=== PATIENT | female | born 1950 | race Caucasian/White ===

== ENCOUNTER → 2018-07-05 | Outpatient (CLI) | payer BC ==
--- NOTE | 2018-07-05 15:23 | MR ---
EXAMINATION TYPE: MR angio head wo con DATE OF EXAM: 07/05/2018 COMPARISON: 05/03/2015 HISTORY: Vascular headache, temporal artery biopsy 1 wk ago TECHNIQUE: Utilizing 3-D [id number] intracranial MRA of the teller of [place] was performed. FINDINGS: The vertebrobasilar and carotid systems are patent. There is no sizable aneurysm or vascular malform ation. Left vertebral artery is dominant. A1 segment of the left anterior cerebral artery is slightly hypopl astic. IMPRESSION: 1. No evidence of vascular malformation or sizable aneurysm.
--- NOTE | 2018-07-05 17:05 | MR ---
EXAMINATION TYPE: MR brain wo con DATE OF EXAM: 07/05/2018 3:06 PM COMPARISON: NONE HISTORY: Vascular headache, temporal artery biopsy 1 wk ago FINDINGS: The ventricles, basal cisterns and sulci overlying the cerebral convexities are mildly enlarged. There is evidence of mild periventricular white matter ischemic demyelination. Demyelinating disease is not excluded. Remote deep white matter insults are also noted. No acute edema is seen on diffusion weighted imaging. There is no evidence for midline shift or mass effect. Acute intracranial hemorrhage or extra-axial collection is not evident. The paranasal sinuses and mastoid air cells are well-aerated. IMPRESSION: Age-related atrophic and chronic small vessel ischemic change. No acute intracranial process at this time.
== END ==
LOC: RADMRIMAIN 14:19
PROVIDERS: ATTEND Psychiatry & Neurology Neurology
DX: G31.1 Senile degeneration of brain, not elsewhere classified (principal); I67.82 Cerebral ischemia; G44.1 Vascular headache, not elsewhere classified
CPT/HCPCS: 70544; 70551

== ENCOUNTER → 2019-02-12 | Outpatient (CLI) | payer BC | END | disposition home or self-care (01) | LOC: LABWHC1 12:15 | PROVIDERS: ATTEND Psychiatry & Neurology Neurology | DX: R51 Headache (principal); I82.90 Acute embolism and thrombosis of unspecified vein; Z86.73 Personal history of transient ischemic attack (TIA), and cerebral infarction without residual deficits | CPT/HCPCS: 36415; 81241 ==

== ENCOUNTER 2019-05-03 13:18 | Emergency (ER) | payer BC ==
[2019-05-03 13:24] VITALS: RESP 18
[2019-05-03] MEDS ORDERED: LIDOCAINE 1% INJ 10MG/ML (20 ML MDV) SQ ONE (13:47)
--- NOTE | 2019-05-03 14:24 | CT ---
EXAMINATION TYPE: CT brain sarah wo con DATE OF EXAM: 05/03/2019 COMPARISON: CT brain 05/01/2015 HISTORY: Fall, injury to nose, pain back of head CT DLP: 988..9 mGycm Automated exposure control for dose reduction was used. Multiple axial sections were obtained of the brain without contrast. Ventricles have normal size. There is no mass effect nor midline shift. There is no sign of intracran ial hemorrhage. The calvarium is intact. There is no evidence of cerebral edema. Cervical vertebra have normal alignment. There is mild narrowing at C5-6 disc space. Posterior elemen ts are intact. There is minor hypertrophic facet arthropathy in the mid cervical spine. The skull bas e is intact. IMPRESSION: Minor degenerative disc changes in the cervical spine. No fracture. Negative CT scan of the brain. No change.
--- NOTE | 2019-05-03 14:26 | CT ---
EXAMINATION TYPE: CT facial bones wo con DATE OF EXAM: 05/03/2019 COMPARISON: HISTORY: Fall, injury to nose, pain back of head CT DLP: Included in brain/cspine mGycm Automated exposure control for dose reduction was used. Multiple axial sections were obtained from the bottom of the maxilla to the top of the frontal sinuse s without contrast. Temporomandibular joints are intact. Zygomatic arches appear normal. The maxilla is intact. There is normal aeration of the paranasal sinuses. I see no bony destructive process. Nasal bone appears intac t. There is no evidence of orbital mass. There is no evidence of a blowout fracture. There is normal aeration of the temporal bones. IMPRESSION: Normal CT scan of the facial bones. No fracture.
[2019-05-03] MEDS ORDERED: CEPHALEXIN 500MG STARTER PACK 4 CAP BTL PO STA (14:57)
[2019-05-03] MEDS ORDERED: traMADol 50 MG STARTER PACK 3 TAB BTL PO STA (14:57)
--- NOTE | 2019-05-03 15:00 | ED ---
Fall HPI - General Chief Complaint: Fall Stated Complaint: facial injury Time Seen by Provider: 05/03/19 13:34 Source: patient Mode of arrival: wheelchair - History of Present Illness Initial Comments: 69yo female presenting today for cc of fall with nasal injury just prior to arrival. States just prior to arrival she was walking down steps missed the last 2 falling forward hitting her face on a wall. Patient states she scratched her nose. Patient states there is a skin tear. Patient denies loss of consciousness. Patient denies use of anticoagulation therapy. Patient denies any extremity injury states she denied neck pain after the fall. Patient states she has a slight headache, denies visual changes, diplopia, nausea, vomiting. Patient denies any chest pain, SOB or symptoms prior to falling. Patient states she tripped due to miscounting steps. Remainign ROS (-). Patient ambulatory and well appearing on arrival. - Related Data Home Medications Medication Instructions Recorded Confirmed Omeprazole [PriLOSEC] 20 mg PO DAILY 11/27/13 05/01/15 Sertraline [Zoloft] 50 mg PO QAM 11/27/13 05/01/15 Previous Rx's Medication Instructions Recorded Aspirin EC [Ecotrin] 325 mg PO DAILY #30 tablet. 05/04/15 Clopidogrel [Plavix] 75 mg PO DAILY #30 tab 05/04/15 Multivitamins, Thera [Multivitamin 1 each PO DAILY@1200 #30 tab 05/04/15 (formulary)] Simvastatin [Zocor] 40 mg PO DAILY #30 tab 05/04/15 traMADol HCl [Ultram] 50 mg PO Q6H PRN #20 tab 05/04/15 Cephalexin [Keflex] 500 mg PO Q12HR 5 Days #10 cap 05/03/19 Allergies Allergy/AdvReac Type Severity Reaction Status Date / Time Penicillins Allergy Rash/Hives Verified 05/03/19 13:24 Review of Systems ROS Statement: Those systems with pertinent positive or pertinent negative responses have been documented in the HPI. ROS Other: All systems not noted in ROS Statement are negative. Past Medical History Past Medical History: Cancer, GERD/Reflux, Hyperlipidemia Additional Past Medical History / Comment(s): KIDNEY STONE History of Any Multi-Drug Resistant Organisms: None Reported Past Surgical History: Section, Cholecystectomy, Tubal Ligation Additional Past Surgical History / Comment(s): SKIN CA REMOVED Past Anesthesia/Blood Transfusion Reactions: No Reported Reaction Past Psychological History: Anxiety Smoking Status: Never smoker Past Alcohol Use History: None Reported Past Drug Use History: None Reported - Past Family History Father Family Medical History: Congestive Heart Failure (CHF) Mother Family Medical History: Osteoarthritis (OA) General Exam - General Exam Comments Initial Comments: General: The patient is awake and alert, in no distress, and does not appear acutely ill. Eye: +3 mm pupils are equal, round and reactive to light, extra-ocular movements are intact. No nystagmus. There is normal conjunctiva bilaterally. No signs of icterus. Ears, nose, mouth and throat: There are moist mucous membranes and no oral lesions. Skin avulsion on the nasal bridge. No deep laceration. No septal deviation or hematoma. Neck: The neck is supple, there is no tenderness or JVD. No midline tenderness to patient the cervical spine. Patient is paravertebral tenderness however is able to fully range without difficulty. Cardiovascular: There is a regular rate and rhythm. No murmur, rub or gallop is appreciated. Respiratory: Lungs are clear to auscultation, respirations are non-labored, breath sounds are equal. No wheezes, stridor, rales, or rhonchi. Gastrointestinal: Soft, non-distended, non-tender abdomen without masses or organomegaly noted. There is no rebound or guarding present. Musculoskeletal: Normal ROM, no tenderness. Strength 5/5. Sensation intact. Radial pulses equal bilaterally 2+. Neurological: A&O x 3. CN II-XII intact, There are no obvious motor or sensory deficits. Coordination appears grossly intact. Speech is normal. Skin: Skin is warm and dry and no rashes or lesions are noted. No scalp hematomas. Psychiatric: Cooperative, appropriate mood & affect, normal judgment. Limitations: no limitations Course Vital Signs 05/03/19 05/03/19 13:21 15:10 Temperature 98.0 F 97.9 F Pulse Rate 20 L 63 Respiratory 18 18 Rate Blood Pressure 155/68 164/81 O2 Sat by Pulse 99 99 Oximetry Procedures - Laceration Laceration #1 Consent Obtained: verbal consent Indication: laceration Site: face Size (cm): 2 (avulsion of skin/flap) Description: flap, avulsion, irregular Depth: simple, single layer Anesthetic Used: lidocaine 1% Anesthesia Technique: local infiltration Amount (mls): 2 Pre-repair: wound explored, irrigated extensively, deep structures intact Type of Sutures: nylon Size of Sutures: 6-0 Number of Sutures: 6 Technique: simple, interrupted Patient Tolerated Procedure: well, no complications Additional Comments: Irrigated and cleansed with iodine prior to taking down skin avulsion, most edges adhere well had some difficulty with specific edges secondary to thin skin tearing, and irregularity or missing edges from trauma Medical Decision Making - Medical Decision Making 0-35-tvdi-old female presenting today for chief complaint of nasal injury, fall. Skin avulsion on exam. C/o mild headache, nose pain. No deviation of nose noted. No hematoma. CT brain/cspine (-) for acute process. CT facial bones (-). Avulsion repaired to the best of my ability, patient agreeable to closure. Tetanus UTD per patient. Patient initiated on keflex to prevent infection. Return parameters, suture care discussed, pateitn discharged appearing well. Disposition Clinical Impression: Facial injury, Skin avulsion, Fall, Head injury Disposition: HOME SELF-CARE Condition: Good Instructions (If sedation given, give patient instructions): Care For Your Stitches (ED), Skin Avulsion (ED), Fall Prevention (ED) Additional Instructions: Please use medication as discussed. Please follow-up with family doctor in the next 2 days, come in for suture removal in 5-7 days. Please return for purulent drainage, increasing redness or pain. Please return to emergency room if the symptoms increase or worsen or for any other concerns. Prescriptions: Cephalexin [Keflex] 500 mg PO Q12HR 5 Days #10 cap Is patient prescribed a controlled substance at d/c from ED?: No Referrals: Manda Stapleton MD [Primary Care Provider] - 1-2 days Time of Disposition: 14:59
[2019-05-03 15:17] VITALS: BP 164/81; PULSE 63; TEMP 97.9
== END 2019-05-03 15:10 | disposition home or self-care (01) ==
LOC: EC 13:18
DX: S01.21XA Laceration without foreign body of nose, initial encounter (principal); K21.9 Gastro-esophageal reflux disease without esophagitis; F41.9 Anxiety disorder, unspecified; Z88.0 Allergy status to penicillin; Z79.899 Other long term (current) drug therapy; Z85.828 Personal history of other malignant neoplasm of skin; Z98.890 Other specified postprocedural states; W10.9XXA Fall (on) (from) unspecified stairs and steps, initial encounter; Y93.01 Activity, walking, marching and hiking; Y92.009 Unspecified place in unspecified non-institutional (private) residence as the place of occurrence of the external cause
CPT/HCPCS: 99283; 12011; 72125; 70486; 70450; J2001

== ENCOUNTER → 2020-09-27 | Outpatient (CLI) | payer BC ==
[2020-09-27 10:19] VITALS: BP 118/65; PULSE 59; RESP 16; TEMP 98
--- NOTE | 2020-09-27 10:44 | P.PAINCN ---
History of Present Illness - Reason for Consult Consult date: 09/27/20 - History of Present Illness This is 70 years old female with a chronic history of severe headache, started more than 20 years, intensity and the frequency of the headaches increased over time, she is having constant severe headache, is from the base of the skull to the top of the head, she denies any motor or sensory deficit she denies any aura, as any visual changes, he was diagnosed with occipital neuralgia and she was treated by [facility] , she tried different Medications and She Is Recently Tried Excedrin headache, which helped to a minimal degree, she tried massage therapy and chiropractic therapy without any significant improvement of her headache, Past Medical History Past Medical History: Cancer, CVA/TIA, GERD/Reflux, Hyperlipidemia, Hypertension Additional Past Medical History / Comment(s): states chronic headaches, CVA 2016, no residual effects, hx of kidney stones, states still has KIDNEY STONE, skin CA History of Any Multi-Drug Resistant Organisms: None Reported Past Surgical History: Section, Cholecystectomy, Tubal Ligation Additional Past Surgical History / Comment(s): SKIN CA REMOVED, lithotripsy, temporal artery bx Past Anesthesia/Blood Transfusion Reactions: Postoperative Nausea & Vomiting (PONV) Smoking Status: Never smoker - Past Family History Father Family Medical History: Congestive Heart Failure (CHF) Mother Family Medical History: Osteoarthritis (OA) Medications and Allergies Home Medications Medication Instructions Recorded Confirmed Type Omeprazole [PriLOSEC] 20 mg PO DAILY 11/27/13 09/27/20 History Sertraline [Zoloft] 50 mg PO QAM 11/27/13 09/27/20 History Multivitamins, Thera [Multivitamin 1 each PO DAILY@1200 #30 tab 05/04/15 09/27/20 Rx (formulary)] Aspirin [Adult Low Dose Aspirin EC] 81 mg PO DAILY 09/23/20 09/27/20 History Lisinopril [Prinivil] 10 mg PO DAILY 09/23/20 09/27/20 History Rosuvastatin [Crestor] 20 mg PO DAILY 09/23/20 09/27/20 History Allergies Allergy/AdvReac Type Severity Reaction Status Date / Time Penicillins Allergy Rash/Hives Verified 09/23/20 15:07 Physical Exam Vitals: Vital Signs Temp Pulse Resp BP Pulse Ox 09/27/20 10:14 98.0 F 59 L 16 118/65 99 Physical Examinations : -Constitutiona : Cooperative , not in acute distress . -HEENT : nech : supple , no Lymphadenopathy , normal thyroid size . : eyes : no ptosis , no icterus, no photophobia . - neurologic : Cranial nerve II to XII intact , no focal neurological deffecit . -psychatric : alert , oriented X 3 , appropriate affect , intact judgment and insight . -Lymphatic : no Lymphadenopathy . - musculoskeltal : Cervical Spine motor stregnth in the deltoid and biceps, normal right side , normal Left side motor stregnth biceps and the wrist extensors normal right side ,normal left side . motor stregnth in the triceps muscle . normal Right side , normal Left side deep tendon reflexes normal at the biceps , normal at Brachioradialis , normal at triceps. cervical facet loading test: Positive Bilaterally Severe tenderness over the occipital nerve bilaterally Lumber spine moter stegnth lower extremities ,thigh and legs 5/5 Right side , 5/5 Left side Results Comments: MRI of the brain reviewed Assessment and Plan Plan: Assessment and plan=1-occipital neuralgia bilaterally. 2-cervicogenic headache. 3-cervical spondylosis. Patient could benefit from bilateral occipital nerve block, procedure risk and benefits and alternatives discussed with the patient and she agreed with the proceeding Time with Patient: Greater than 30 PQRS Measure Charge Sheet Measure #130: Documentation of Current Meds in Medical Chart: Patient's medications documented in chart Measure #226: Tobacco Use: Screen & Cessation Intervention: Pt not a tobacco user Measure #111: Pneumonia Vaccination: Pneumococcal vaccine NOT administered or previously given Measure #47: Advance Care Plan: Advance care planning discussed & documented, pt chose/unable to give Measure #412: Opioid Treatment Agreement: No documentation of signed opioid treatment agreement Measure #408: Opioid Therapy Follow-up Evaluation: Patient had NO f/u eval minimum every 3 months during opioid therapy Measure #317: Preventitive Care & Scrn High Bld Press & F/U: Normal blood pressure, f/u not required Measure #128: Body Mass Index (BMI) Screening & Follow-up: BMI documented ABOVE normal parameters - f/u documented Measure #131: Pain Assessment & Follow-up: Pain positive & plan documented, Follow-up scheduled Measure #431: Unhealthy Alcohol Use Preventative Care & Scrn: Patient not identified as an unhealthy alcohol user PQRS Narrative: Smoking Status Never smoker Blood Pressure 118/65 Pain Intensity [Head] 3 Scale Used Numeric (1 - 10) Hx Alcohol Use (MH) No Home Medications: Ambulatory Orders Omeprazole [PriLOSEC] 20 mg PO DAILY 11/27/13 Sertraline [Zoloft] 50 mg PO QAM 11/27/13 Multivitamins, Thera [Multivitamin (formulary)] 1 each PO DAILY@1200 #30 tab 05/04/15 Aspirin [Adult Low Dose Aspirin EC] 81 mg PO DAILY 09/23/20 Lisinopril [Prinivil] 10 mg PO DAILY 09/23/20 Rosuvastatin [Crestor] 20 mg PO DAILY 09/23/20
== END ==
LOC: PNWHC3 10:00
PROVIDERS: ATTEND Specialist
DX: M54.81 Occipital neuralgia (principal); M47.812 Spondylosis without myelopathy or radiculopathy, cervical region; E78.5 Hyperlipidemia, unspecified; I10 Essential (primary) hypertension; K21.9 Gastro-esophageal reflux disease without esophagitis; Z86.73 Personal history of transient ischemic attack (TIA), and cerebral infarction without residual deficits; Z79.82 Long term (current) use of aspirin; Z79.899 Other long term (current) drug therapy; Z88.0 Allergy status to penicillin
CPT/HCPCS: 99211

== ENCOUNTER 2020-10-26 07:26 | Day surgery (SDC) | payer BC ==
[2020-10-22 14:29] VITALS: BMI 34.4
[~2020-10-26 07:26] MED LIST: LACTATED RINGERS 1,000 ML IV SCH
[2020-10-26 07:43] VITALS: TEMP 97.1
[2020-10-26] MEDS ORDERED: methylPREDNISolone ACETATE 40 MG/ML 1 ML VIAL ONE (08:07)
[2020-10-26] MEDS ORDERED: ROPIVACAINE 5MG/ML 20ML VIAL ONE (08:07)
--- NOTE | 2020-10-26 08:18 | P.PCN ---
Date of Procedure: 10/26/20 Procedure(s) Performed: Preoperative diagnoses= 1- Greater occipital neuralgia. 2-cervical spondylosis with cervical facet arthropathy. 3-cervicogenic headache Postoperative diagnoses= same as preoperative diagnosis. Procedure= Bilateral Greater occipital nerve block Anesthesia= local anesthesia only. Estimated blood loss=minimal. Procedure indication= the patient had a history of severe chronic neck pain ,and headache, diagnosed with occipital neuralgia exam was positive for severe tenderness over the occipital nerve bilaterally, she will be a good candidate occipital nerve block, patient failed conservative management Procedure description= the patient was seen and identified in the preoperative holding area, risks and benefits and alternative of the procedure and possible complications discussed with the patient, and he agreed with the preceding, patient signed the consent, an IV was started, and vital signs were monitored and were stable throughout the procedure, patient was placed in the sitting position or table and the neck area was prepped and draped with a sterile fashion, vital signs were closely monitored during the procedure, 25-gauge needle advanced 1 inch lateral to the occipital protuberance on the right side, at the location of the right occipital nerve , then after negative aspiration for heme and CSF and there was no paresthesia during the injection, 6 ml of Robivacaine 0.5% and 20 mg of Depo-Medrol injected after negative aspiration, the needle removed, and the entire same procedure was repeated for the left Greater occipital nerve. Patient tolerated the procedure well without any complication, The patient returned to supine position after the back was cleaned and a Band- Aid applied, the patient transported to recovery room in stable condition and he was monitored for 30 minutes before he was discharged home and then patient was reexamined before going home and patient was discharged in stable condition and patient will follow up with the pain clinic in a few weeks.
[2020-10-26] MEDS ORDERED: IV FLUID CONTINUATION 975 ML IV ONE (08:21)
[2020-10-26 08:50] VITALS: RESP 18
[2020-10-26 09:04] VITALS: BP 149/96; PULSE 66
== END 2020-10-26 09:14 | disposition home or self-care (01) ==
LOC: ORPAIN 07:26
PROVIDERS: ATTEND Specialist
DX: M54.81 Occipital neuralgia (principal); M47.812 Spondylosis without myelopathy or radiculopathy, cervical region; R51.9 Headache, unspecified; Z78.0 Asymptomatic menopausal state; Z88.0 Allergy status to penicillin; Z88.2 Allergy status to sulfonamides
CPT/HCPCS: 64405; J1030; J2795

== ENCOUNTER 2020-12-07 08:16 | Day surgery (SDC) | payer BC ==
[2020-12-03 15:47] VITALS: BMI 33.6
[2020-12-07 08:38] VITALS: RESP 16; TEMP 96.9
[2020-12-07] MEDS ORDERED: LIDOCAINE 1% INJ 10MG/ML (20 ML MDV) ONE (08:49)
[2020-12-07] MEDS ORDERED: ROPIVACAINE 5MG/ML 20ML VIAL ONE (08:49)
[2020-12-07] MEDS ORDERED: TRIAMCINOLONE ACETONIDE 40 MG/ML 1 ML VIAL ONE (08:49)
--- NOTE | 2020-12-07 09:00 | P.PCN ---
Date of Procedure: 12/07/20 Surgeon: Hany Albrecht Pathology: none sent Condition: stable Disposition: PACU Description of Procedure: Pre-operative diagnosis: 1- occipital neuralgea Post Operative Diagnosis 1- occipital neuralgea Procedure: 1- B/L greater and lesser occipital nerve block ANESTHESIA: Local with Lidocaine 1 % EBL: Minimal PROCEDURE INDICATION: The patient with neck pain and headache secondary to occipital neuralgea unresponsive to conservative treatments. PROCEDURE DESCRIPTION / TECHNIQUE: The patient was seen and identified in the preoperative area. Risks, benefits, complications, and alternatives were discussed with the patient, the patient agreed to proceed with the procedure and signed the consent. IV was started. Vital signs remained stable throughout the procedure. Patient was taken to the OR and time out was completed. The patient was placed in the prone position on the procedure table. . The right occiptial area were pr epped with chloraprep. The the occipital exuberance and superior nuchal line were identified on the right side of the occiput. The greater occipital nerve location was estimated to be medial to the occipital artery I used 25-gauge 1-1/2 inch needle to go through the skin and infiltrate 2.5 MLS of a solution made up of 4 MLS Ropivacaine 0.5% +10 mg of Kenalog. The procedure was repeated in the same manner on the left side. Patient tolerated procedure well.
[2020-12-07 09:16] VITALS: BP 130/76; PULSE 60
== END 2020-12-07 09:33 | disposition home or self-care (01) ==
LOC: ORPAIN 08:16
PROVIDERS: ATTEND Anesthesiology
DX: M54.81 Occipital neuralgia (principal); M54.2 Cervicalgia
CPT/HCPCS: 64405; J3301; J2001 ×2; J2795

== ENCOUNTER 2024-02-19 20:43 | Emergency (ER) | payer BC, MEDICARE ==
[2024-02-19 20:49] VITALS: TEMP 98.1
--- NOTE | 2024-02-19 22:26 | US ---
EXAMINATION TYPE: US venous doppler duplex LE RT DATE OF EXAM: 02/19/2024 9:54 PM COMPARISON: NONE CLINICAL INDICATION: Female, 73 years old with history of Pain and swelling; Patient states pain and leg swelling in groin. No hx DVT. Patient is not on thinners, Pain TECHNIQUE: The lower extremity deep venous system is examined utilizing real time linear array sonog shelby with graded compression, color doppler sonography, and spectral doppler. SIDE PERFORMED: Right FINDINGS: VESSELS IMAGED: Common Femoral Vein Deep Femoral Vein Greater Saphenous Vein * Femoral Vein Popliteal Vein Small Saphenous Vein * Proximal Calf Veins (* superficial vessels) [address] Right Leg: Echoes seen throughout the CFV- popliteal vein. There is a small amount of thready color flow seen within the proximal femoral vein and the popliteal vein, however these areas are not compre ssible, IMPRESSION: Deep venous thrombosis involvement of the right common femoral vein to at least the right popliteal v ein. Critical findings reported to Mindy HARMON over the phone at 10:[address] Dee on 02/19/24. [facility], , 02/19/2024 10:24 PM
[2024-02-19 23:26] LABS: Basophils % (A) 0 %; Eosinophils # (A) 0.2 k/uL (0-0.7); Eosinophils % (A) 3 %; HCT 33.9 % (34.0-46.0); Lymphocytes # (A) 1.8 k/uL (1.0-4.8); Lymphocytes % (A) 22 %; MCH 27.1 pg (25.0-35.0); MCHC 32.3 g/dL (31.0-37.0); MCV 83.8 fL (80.0-100.0); Mean Platelet Volume 7.7; Monocytes # (A) 0.5 k/uL (0-1.0); Monocytes % (A) 6 %; Neutrophils # (A) 5.6 k/uL (1.3-7.7); Neutrophils % (A) 68 %; Platelet Count 126 k/uL (150-450); RBC 4.05 m/uL (3.80-5.40); RDW 15.4 % (11.5-15.5); WBC 8.3 k/uL (3.8-10.6)
[2024-02-19 23:35] LABS: ALT 24 U/L (4-34); AST 28 U/L (14-36); African American GFR (CKD) 38 (>60 ml/min/1.73 sqM); Albumin 3.9 g/dL (3.5-5.0); Alkaline Phosphatase 91 U/L (38-126); Anion Gap 9 mmol/L; Blood Urea Nitrogen 51 mg/dL (7-17); Calcium 9.6 mg/dL (8.4-10.2); Carbon Dioxide 20 mmol/L (22-30); Chloride 110 mmol/L (98-107); Glucose 122 mg/dL (74-99); Non-African American GFR(CKD) 33 (>60 ml/min/1.73 sqM); Potassium 5.3 mmol/L (3.5-5.1); Sodium 139 mmol/L (137-145); Total Bilirubin 0.4 mg/dL (0.2-1.3); Total Protein 6.8 g/dL (6.3-8.2)
[2024-02-19 23:44] VITALS: RESP 18
--- NOTE | 2024-02-19 23:45 | ED ---
Extremity Problem HPI - General Chief complaint: Extremity Problem,Nontraumatic Stated complaint: R Leg Pain,Headache Time Seen by Provider: 02/19/24 20:58 Source: patient Mode of arrival: wheelchair Limitations: no limitations - History of Present Illness Initial comments: 73-year-old female presenting with chief complaint of pain and swelling to the right lower extremity. Patient noticed this today. States that it feels like her thigh is very tight. States that she has had some back pain with pain down that leg since her back surgery in September, however that today the pain is worse. No blood thinners. She had a recent injection to treat her sciatica 3 weeks ago. No recent surgery. No recent long travel. No history of blood clots. No chest pain or difficulty breathing. No dizziness. States that at home she was getting a headache which prompted her to take her blood pressure noted that it was elevated in the 170 systolic range. - Related Data Home Medications Medication Instructions Recorded Confirmed Omeprazole [PriLOSEC] 20 mg PO DAILY 11/27/13 12/03/20 Sertraline [Zoloft] 50 mg PO QAM 11/27/13 12/03/20 Aspirin [Adult Low Dose Aspirin EC] 81 mg PO DAILY 09/23/20 12/03/20 Rosuvastatin [Crestor] 20 mg PO DAILY 09/23/20 12/03/20 lisinopriL [Prinivil] 20 mg PO DAILY 09/23/20 12/03/20 Previous Rx's Medication Instructions Recorded Multivitamins, Thera [Multivitamin 1 each PO DAILY@1200 #30 tab 05/04/15 (formulary)] Apixaban [Eliquis Starter Pack 5 - 10 mg PO DIRECTED 30 Days 02/20/24 (for VTE)] #1 each Allergies Allergy/AdvReac Type Severity Reaction Status Date / Time Penicillins Allergy Rash/Hives Verified 02/19/24 20:49 sulfamethoxazole Allergy Rash/Hives Verified 02/19/24 20:49 [From Bactrim] trimethoprim [From Bactrim] Allergy Rash/Hives Verified 02/19/24 20:49 Review of Systems ROS Statement: Those systems with pertinent positive or pertinent negative responses have been documented in the HPI. ROS Other: All systems not noted in ROS Statement are negative. Past Medical History Past Medical History: Cancer, CVA/TIA, GERD/Reflux, Hyperlipidemia, Hypertension Additional Past Medical History / Comment(s): Chronic headaches, CVA 2016, no residual effects, hx of kidney stones, states still has KIDNEY STONE, hx skin cancer. History of Any Multi-Drug Resistant Organisms: None Reported Past Surgical History: Back Surgery, Section, Cholecystectomy, Tubal Ligation Additional Past Surgical History / Comment(s): SKIN CANCER REMOVED, lithotripsy, temporal artery biopsy. Past Anesthesia/Blood Transfusion Reactions: Postoperative Nausea & Vomiting (PONV) Past Psychological History: Anxiety Smoking Status: Never smoker Past Alcohol Use History: Rare Past Drug Use History: None Reported - Past Family History Father Family Medical History: Congestive Heart Failure (CHF) Mother Family Medical History: Osteoarthritis (OA) General Exam Limitations: no limitations General appearance: alert, in no apparent distress Head exam: Present: atraumatic, normocephalic, normal inspection Eye exam: Present: normal appearance, EOMI Neck exam: Present: normal inspection. Absent: meningismus Respiratory exam: Present: normal lung sounds bilaterally. Absent: respiratory distress, wheezes, rales, rhonchi, stridor Cardiovascular Exam: Present: regular rate, normal rhythm, normal heart sounds. Absent: systolic murmur, diastolic murmur, rubs, gallop, clicks Extremities exam: Present: normal capillary refill, pedal edema (R side) Neurological exam: Present: alert, oriented X3 Psychiatric exam: Present: normal affect, normal mood Skin exam: Present: warm, dry, normal color Course Vital Signs 02/19/24 02/19/24 02/20/24 20:45 23:43 00:23 Temperature 98.1 F Pulse Rate 56 L 98 69 Respiratory 16 18 18 Rate Blood Pressure 168/63 140/61 123/63 O2 Sat by Pulse 100 98 Oximetry Medical Decision Making - Medical Decision Making Was pt. sent in by a medical professional or institution (, PA, [employer], urgent care, hospital, or halfway...) When possible be specific @ -No Did you speak to anyone other than the patient for history (EMS, parent, family, police, friend...)? What history was obtained from this source @ -No Did you review nursing and triage notes (agree or disagree)? Why? @ -I reviewed and agree with nursing and triage notes Were old charts reviewed (outside hosp., previous admission, EMS record, old EKG, old radiological studies, urgent care reports/EKG's, halfway records)? Report findings @ -No old charts were reviewed Differential Diagnosis (chest pain, altered mental status, abdominal pain women, abdominal pain men, vaginal bleeding, weakness, fever, dyspnea, syncope, headache, dizziness, GI bleed, back pain, seizure, CVA, palpatations, mental health, musculoskeletal)? @ -Differential Musculoskeletal Muscular strain, contusion, ligament sprain, fracture, arthritis, septic arthritis, bursitis, cellulitis, muscle spasm, nerve compression, DVT, arterial occlusion, herpes zoster, electrolyte abnormality, tumor.... This is not meant to be in all inclusive list EKG interpreted by me (3pts min.). @ -EKG reviewed with my attending and appears consistent with sinus rhythm with sinus arrhythmia. Ventricular rate 63. QRS 90. QT 366. QTc 374. X-rays interpreted by me (1pt min.). @ -None done CT interpreted by me (1pt min.). @ -None done U/S interpreted by me (1pt. min.). @ -Ultrasound shows DVT involving the right of the right common femoral vein tothe right popliteal vein What testing was considered but not performed or refused? (CT, X-rays, U/S, labs)? Why? @ -None What meds were considered but not given or refused? Why? @ -None Did you discuss the management of the patient with other professionals (professionals i.e. , PA, [employer], lab, RT, psych nurse, director social welfare, renewals manager, teacher, first aid officer, bilingual case manager)? Give summary @ -No Was smoking cessation discussed for >3mins.? @ -No Was critical care preformed (if so, how long)? @ -No Were there social determinants of health that impacted care today? How? (Homelessness, low income, unemployed, alcoholism, drug addiction, transportation, low edu. Level, literacy, decrease access to med. care, skilled nursing, rehab)? @ -No Was there de-escalation of care discussed even if they declined (Discuss DNR or withdrawal of care, Hospice)? DNR status @ -No What co-morbidities impacted this encounter? (DM, HTN, Smoking, COPD, CAD, Cancer, CVA, ARF, Chemo, Hep., AIDS, mental health diagnosis, sleep apnea, morbid obesity)? @ -None Was patient admitted / discharged? Hospital course, mention meds given and route, prescriptions, significant lab abnormalities, going to OR and other pertinent info. @ -73-year-old female presenting with chief complaint of pain and swelling to the right thigh that started today. History and physical examination are conducted. Ultrasound is positive for DVT. Troponin is negative. EKG reviewed with my attending, P waves are identified and appears more consistent with sinus rhythm with sinus arrhythmia. No evidence of right heart strain. Patient is having no chest pain or difficulty breathing. No history of GI bleed. No recent falls. She is started on Eliquis. She will follow-up with her PCP. Follow-up with PCP. Report back to ER with any new or worsening symptoms. D iscussed return parameters and answered all questions. Patient conveyed verbal understanding and agreed to the plan. I discussed this case in detail with my attending Dr. Lazo Undiagnosed new problem with uncertain prognosis? @ -No Drug Therapy requiring intensive monitoring for toxicity (Heparin, Nitro, Insulin, Cardizem)? @ -No Were any procedures done? @ -No Diagnosis/symptom? @ -DVT Acute, or Chronic, or Acute on Chronic? @ -Acute Uncomplicated (without systemic symptoms) or Complicated (systemic symptoms)? @ -Uncomplicated Side effects of treatment? @ -No Exacerbation, Progression, or Severe Exacerbation? @ -No - Lab Data Result diagrams: 02/19/24 23:16 02/19/24 23:16 Lab Results 02/19/24 02/19/24 02/19/24 Range/Units 23:16 23:16 23:16 WBC 8.3 (3.8-10.6) k/uL RBC 4.05 (3.80-5.40) m/uL Hgb 11.0 L (11.4-16.0) gm/dL Hct 33.9 L (34.0-46.0) % MCV 83.8 (80.0-100.0) fL MCH 27.1 (25.0-35.0) pg MCHC 32.3 (31.0-37.0) g/dL RDW 15.4 (11.5-15.5) % Plt Count 126 L (150-450) k/uL MPV 7.7 Neutrophils % 68 % Lymphocytes % 22 % Monocytes % 6 % Eosinophils % 3 % Basophils % 0 % Neutrophils # 5.6 (1.3-7.7) k/uL Lymphocytes # 1.8 (1.0-4.8) k/uL Monocytes # 0.5 (0-1.0) k/uL Eosinophils # 0.2 (0-0.7) k/uL Basophils # 0.0 (0-0.2) k/uL Sodium 139 (137-145) mmol/L Potassium 5.3 H (3.5-5.1) mmol/L Chloride 110 H (98-107) mmol/L Carbon Dioxide 20 L (22-30) mmol/L Anion Gap 9 mmol/L BUN 51 H (7-17) mg/dL Creatinine 1.56 H (0.52-1.04) mg/dL Est GFR (CKD-EPI)AfAm 38 (>60 ml/min/1.73 sqM) Est GFR (CKD-EPI)NonAf 33 (>60 ml/min/1.73 sqM) Glucose 122 H (74-99) mg/dL Calcium 9.6 (8.4-10.2) mg/dL Total Bilirubin 0.4 (0.2-1.3) mg/dL AST 28 (14-36) U/L ALT 24 (4-34) U/L Alkaline Phosphatase 91 (38-126) U/L Troponin I <0.012 (0.000-0.034) ng/mL Total Protein 6.8 (6.3-8.2) g/dL Albumin 3.9 (3.5-5.0) g/dL Disposition Clinical Impression: Deep vein thrombosis (DVT) of lower extremity Disposition: HOME SELF-CARE Condition: Fair Instructions (If sedation given, give patient instructions): Deep Vein Thrombosis (ED) Additional Instructions: Follow-up with your PCP, call the office tomorrow to schedule follow-up appointment. Report back to ER with any new or worsening symptoms. Take your medication as prescribed. Prescriptions: Apixaban [Eliquis Starter Pack (for VTE)] 5 - 10 mg PO DIRECTED 30 Days #1 each Is patient prescribed a controlled substance at d/c from ED?: No Referrals: Manda Stapleton MD [Primary Care Provider] - 1-2 days Time of Disposition: 00:12
[2024-02-20] MEDS ORDERED: HEPARIN SODIUM 1,000 UN/ML (10ML VL) IV PRN (00:01)
[2024-02-20] MEDS: HEPARIN SODIUM 1,000 UN/ML (10ML VL) IV ONE (00:08)
[2024-02-20] MEDS ORDERED: HEPARIN SOD,PORK IN 0.45% NACL 25,000 UNIT in 0.45% NACL 1 250ML.BAG IV SCH (00:15)
[2024-02-20 00:52] VITALS: BP 123/63; PULSE 69
[2024-02-20] MEDS: APIXABAN 5 MG TAB PO STA (00:52)
== END 2024-02-20 00:52 | disposition home or self-care (01) ==
LOC: EC 20:43
DX: I82.431 Acute embolism and thrombosis of right popliteal vein (principal); Z88.0 Allergy status to penicillin; Z88.1 Allergy status to other antibiotic agents; Z88.2 Allergy status to sulfonamides; Z86.73 Personal history of transient ischemic attack (TIA), and cerebral infarction without residual deficits
CPT/HCPCS: 36415; 80053; 84484; 85025; 93005; 99284